=== PATIENT | female | born 1980 | race Caucasian/White ===

== ENCOUNTER 2018-12-17 11:56 | Emergency (ER) | payer MEDICAID, SELFPAY ==
[2018-12-17 12:13] VITALS: BP 126/69; PULSE 86; RESP 18; TEMP 36.6; O2SAT 97
--- NOTE | 2018-12-17 12:46 | DI.RAD_ITS ---
SYMPTOMS/DIAGNOSIS: FALL, TRAUMA RIGHT KNEE: No fracture or joint effusion is seen. The joint spaces are well maintained. IMPRESSION: Negative right knee.
--- NOTE | 2018-12-17 12:52 | ED.GENADUL_ITS ---
Discharge Plan Disposition Patient Disposition: HOME Condition: Fair Discharge Details Chief Complaint: Orthopedic Clinical Impression: Internal derangement of right knee Primary Care Provider: None,None ED Provider: Mara Scales Home Meds and New Rx's Prescriptions: Continued albuterol sulfate 1.25 mg/3 mL Solution For Nebulization 2.5 mg INHALATION QID PRNRF: 0 albuterol sulfate [ProAir HFA] 90 mcg/actuation Hfa Aerosol Inhaler 2 puff INHALATION Q6H PRNRF: 0 Discharge Instructions Instructions: Knee Pain (ED) Additional Instructions: Encourage rest, ice, elevation. Tylenol and/or ibuprofen as needed for discomfort. Please follow-up with primary care next week for reevaluation. In the interim, continue with the brace when ambulatory and use crutches to help with walking. Remain non weight bearing until evaluated by primary care next week. If you develop increased pain, fever/chills/worsening symptoms please seek care urgently once again Referrals: Elder Herr [OSTEOPATHIC DOCTOR] - Discharge Data Discharge Date/Time-TO BE ENTERED AT DEPARTURE: 12/17/18 13:33 Medical Decision Making Patient is a 38-year-old female presents today with chief complaint of right knee pain. Approximately for 30 minutes prior to arrival patient slipped down 6 stairs landing on the right knee. She has a moderate effusion noted on exam. She does not have any notable laxity on her ligamentous exam. She does have difficulty with forced flexion, unable to perform Rodrigo well secondary to this discomfort. She does have a negative Apley grind test. She is endorsing pain primarily over the lateral joint line. I did advise that I am slightly concerned for meniscus injury given the swelling and the area of discomfort. Also consider bony abnormality and will obtain x-ray X-rays reviewed by radiologist as well as myself without any acute bony abnormality noted. No fracture or joint effusion was seen. Discussed these findings with the patient. Encourage rest, ice, elevation. Tylenol and/or ibuprofen as needed for discomfort. Patient will be placed in a knee brace to help with ambulation. Given the level of discomfort she is having with weightbearing, plan to put the patient in a hinged knee brace. We discussed new/worsening symptoms that should prompt urgent evaluation once again. Advised that she follow-up with primary in the next 2 weeks. All of her questions and concerns were addressed and she is in agreement this plan HPI General Mode of arrival: ambulatory . Date/Time Provider Initiated Documentation: 12/17/18 12:50 . Limitations to Documentation: no limitations . Information obtained by: patient and RN notes reviewed . History of Present Illness 38 year old F presents to the emergency department with the chief complaint of right knee pain, described as severe, with intensity rated at 1 0. Quality is described as stabbing, and is localized to the right and lower extremity. Patient reports no radiation. Patient started experiencing this minute(s) and it has been constant. No relieving factors improve symptom(s), No exacerbating factors reported . Patient notes no other symptoms.. Patient did receive the following treatments prior to arrival, none Related Data Home Medications Medication Instructions Recorded Confirmed albuterol sulfate 2.5 mg INHALATION QID PRN 12/17/18 12/17/18 albuterol sulfate [ProAir HFA] 2 puff INHALATION Q6H PRN 12/17/18 12/17/18 Allergies Allergy/AdvReac Type Severity Reaction Status Date / Time bismuth subsalicylate Allergy Skin Rash Unverified 12/17/18 12:12 [From Pepto-Bismol] oxycodone Allergy Skin Rash Unverified 12/17/18 12:12 General Stated Complaint: Orthopedic JERMAINE: 4 Review of Systems Constitutional Reports as per HPI, Denies chills, Denies fever(s), Denies headache(s) and Denies weakness ENT Denies headache(s) Cardiovascular Reports as per HPI Respiratory Reports as per HPI and Denies cough Musculoskeletal Reports as per HPI and Denies tingling Integumentary/Breasts Reports as per HPI, Denies rash and Denies wounds Neurologic Reports as per HPI, Denies headache(s), Denies tingling, Denies paresthesias and Denies weakness [facility] Social History Smoking/Tobacco Use Status: Unknown Alcohol Intake: current Do you feel safe at home: Yes Do you feel safe in your relationship?: Yes Exam Const General: cooperative, healthy appearing, comfortable, no acute distress, well developed and well groomed Nutritional Appearance: average body habitus and well nourished Orientation: alert and awake Resp Effort & Inspection: normal respiratory effort, able to speak in complete sentences and no respiratory distress Cardio Rate: regular rate Rhythm: regular rhythm Skin General skin exam: no rashes or lesions noted Lesions: no lesions Rashes: no rashes Trauma: no lacerations or abrasions Neuro General: alert and awake Cognition: normal cognition Speech: speech normal Motor: muscle tone normal throughout Sensory Exam: no sensory deficits noted Extrem Right lower extremity: normal capillary refill, hip/thigh Details: normal to inspection and normal ROM; no tenderness and no swelling, knee Details: te nderness (diffuse, worse along lateral joint line), swelling (small effusion), abnormal ROM (limited flexion), knee ligament exam normal Details: anterior drawer test normal, posterior drawer test normal, valgus stress test normal and varus stress test normal; no pain with axial loading, Rodrigo's Test Details: positive medially and laterally and Apley's Test Details: negative; no abrasions, no lacerations and no ecchymosis, lower leg Details: normal to inspection; no localized swelling and no palpable cords, ankle Details: normal to inspection and foot Details: normal capillary refill, abnormal to inspection, toes with normal ROM, no edema and vascular exam Details: dorsalis pedis pulse present and posterior tibial pulse present; no tenderness; joint enlargement noted Psych Appearance: grossly normal and well kempt Mental Status: mental status grossly normal Speech and Movement: speech and movement normal Course Vital Signs Temperature 36.6 C 12/17/18 12:13 Pulse 86 12/17/18 12:13 Respiratory Rate 18 12/17/18 12:13 Blood Pressure 126/69 12/17/18 12:13 Pulse Oximetry 97 12/17/18 12:13 Temperature 36.6 C 12/17/18 12:13 Temperature Source Temporal Artery Scan 12/17/18 12:13 Pulse 86 12/17/18 12:13 Respiratory Rate 18 12/17/18 12:13 Respiratory Effort 12/17/18 12:44 Blood Pressure 126/69 12/17/18 12:13 Blood Pressure Position Sitting 12/17/18 12:13 Pulse Oximetry 97 12/17/18 12:13 Oxygen Delivery Method Room Air 12/17/18 12:13 Oxygen Flow Rate 0 12/17/18 12:13 Pain Level 10 12/17/18 12:13
== END 2018-12-17 13:33 | disposition home or self-care (01) ==
PROVIDERS: Emergency Provider Physician Assistant
DX: M23.91 Unspecified internal derangement of right knee (principal); M25.461 Effusion, right knee; W10.8XXA Fall (on) (from) other stairs and steps, initial encounter
CPT/HCPCS: 29505; 99284; 73564; E0114; L1810

== ENCOUNTER 2022-08-07 08:19 | Emergency (ER) | payer MEDICAID, SELFPAY ==
[2022-08-07 08:24] VITALS: BP 134/98; PULSE 84; RESP 18; O2SAT 98
--- NOTE | 2022-08-07 08:30 | DI.CT_ITS ---
Exam(s) CT ABDOMEN PELVIS W EXAM: CT ABDOMEN PELVIS W CLINICAL HISTORY: Left sided abd pain, Nausea, Vomiting TECHNIQUE: Imaging Protocol: Axial computed tomography images with coronal and sagittal reformatted images were created and reviewed CONTRAST MATERIAL: Intravenous: Omnipaque 350 Contrast volume:100 mL Oral: No COMPARISON: No exams were available for comparison FINDINGS: ABDOMEN: Lung Bases: Normal where visualized. Liver: Normal density. No measurable mass. Portal, Superior Mesenteric, and Splenic Veins: Unremarkable. Gallbladder and Biliary Tract: Cholelithiasis. No biliary ductal dilatation. Pancreas: Normal density, no abnormal calcifications or inflammatory process. Spleen: Normal. Adrenals: There is a 0.8 cm round hypodense nodule in the left adrenal gland. No follow-up is recomm ended. The right adrenal gland is unremarkable. Kidneys: Normal size, contour and axis. No radiodense stones or obstructive uropathy. No masses seen. Abdominal Aorta: Abdominal portion non-dilated. Bowel: There are few diverticula in the colon but no evidence of acute diverticulitis. There is no e vidence of bowel obstruction or bowel wall thickening. Appendix is unremarkable. Peritoneal Cavity: No ascites, collection or mesenteric inflammatory response. No free air. Lymph Nodes: Within normal limits. Bones: Within normal limits for the patient's age. Soft Tissues: Unremarkable. PELVIS: Bladder: Symmetric distention, no gross wall thickening. Reproductive Organs: Unremarkable as visualized. Lymph Nodes: Within normal limits. Bones: Within normal limits for the patient's age. IMPRESSION: 1. Cholelithiasis. No biliary ductal dilatation or other evidence to suggest acute cholecystitis. 2. Colonic diverticulosis but no evidence of acute diverticulitis. 3. No evidence of nephrolithiasis or hydronephrosis. 4. Findings were discussed with Alysa Hawk at 9:18 a.m. on 08/07/2022. RADIATION DOSE DELIVERED: 971.59mGy.cm Total DLP DATA REPOSITORY: All CT scans at this facility are submitted to the National Radiology Data Registry (NRDR) Dose Index Registry (DIR) with the [employer] (A[employer]). RADIATION OPTIMIZATION: All CT scans at this facility use at least one of these dose optimization te chniques: automated exposure control; mA and/or kV adjustment per patient size (includes targeted exa ms where dose is matched to clinical indication); or iterative reconstruction.
[2022-08-07 08:31] VITALS: TEMP 36.2
--- NOTE | 2022-08-07 08:32 | ED.GENADUL_ITS ---
Discharge Plan Disposition Patient Disposition: Home Discharge Details Clinical Impression: Nausea & vomiting Primary Care Provider: Elder Herr ED Provider: Alysa Hawk Home Meds and New Rx's Prescriptions: Continued albuterol sulfate 1.25 mg/3 mL Solution For Nebulization 2.5 mg INHALATION QID PRN albuterol sulfate [ProAir HFA] 90 mcg/actuation Hfa Aerosol Inhaler 2 puff INHALATION Q6H PRN trazodone 50 mg tablet 50 mg PO DAILY Patient Comments: TAKE ONE TABLET BY MOUTH EVERY DAY FOR 30 DAYS sertraline 100 mg tablet 100 mg DAILY Patient Comments: TAKE 1 TABLET BY MOUTH DAILY Discharge Instructions Instructions: Acute Nausea and Vomiting (ED) Additional Instructions: Take the nausea medication up to 3 times daily before eating or drinking anything as needed. The repeat urinalysis shows no evidence for urinary tract infection. Please advance diet as tolerated. Stay away from anything fried fatty spicy or dairy. Follow up with primary care provider in 3-5 days. Return to ED sooner if any worsening pain, fever, vomiting or concerns. Increase oral fluids. Referrals: Elder Herr [Primary Care Provider] - 5 days Medical Decision Making <Alysa Hawk NP - Last Filed: 08/07/22 10:24> 42-year-old female presents to the ER with a chief complaint of nausea vomiting which began last night around 9 PM and some left-sided abdominal pain. She also endorses some constipation for the last 2 days and dysuria. She reports fever and chills. She is concerned for possible kidney infection. She does have a past medical history of chronic bronchitis, she is a daily smoker. CBC, CMP, lipase urinalysis liter of saline and Zofran ordered. Urinalysis shows moderate leukocytes trace protein no red blood cells. Micro is pending at this time. CT abdomen pelvis with IV contrast ordered. Differential diagnosis includes but not limited to UTI, kidney stone, kidney i nfection, small bowel obstruction, diverticulitis Urinalysis shows squamous contamination culture not indicated at this time. Repeat UA ordered. Labs are largely unremarkable, see below. CT abdomen pelvis shows nothing acute some small diverticula no evidence of diverticulitis, cholelithiasis no evidence of cholecystitis. Patient reevaluation, she reports that her pain is better. Discussed work-up results she verbalizes under standing. She is up to the bathroom to give an additional urine sample I did discuss clean catch procedures with her. She verbalized understanding. Repeat urinalysis shows no leukocytes no nitrites no blood no evidence of UTI. We will send patient home with Zofran tablets and instructed on rehydration and strict return instructions. This text was generated using [employer] system, please disregard any oddities of phrase or misspellings. Medical Records Medical records reviewed: Yes I reviewed the patient's medical records. Medical records narrative: On patient record review patient was seen and treated at [facility] in May and was given Bactrim at that time for UTI. Imaging Data Radiologic Study: Imaging: CT Scan Radiologist's impression: EXAM: CT ABDOMEN PELVIS W CLINICAL HISTORY: Left sided abd pain, Nausea, Vomiting TECHNIQUE: Imaging Protocol: Axial computed tomography images with coronal and sagittal reformatted images were created and reviewed CONTRAST MATERIAL: Intravenous: Omnipaque 350 Contrast volume:100 mL Oral: No COMPARISON: No exams were available for comparison FINDINGS: ABDOMEN: Lung Bases: Normal where visualized. Liver: Normal density. No measurable mass. Portal, Superior Mesenteric, and Splenic Veins: Unremarkable. Gallbladder and Biliary Tract: Cholelithiasis. No biliary ductal dilatation. Pancreas: Normal density, no abnormal calcifications or inflammatory process. Spleen: Normal. Adrenals: There is a 0.8 cm round hypodense nodule in the left adrenal gland. No follow-up is recommended. The right adrenal gland is unremarkable. Kidneys: Normal size, contour and axis. No radiodense stones or obstructive uropathy. No masses seen. Abdominal Aorta: Abdominal portion non-dilated. Bowel: There are few diverticula in the colon but no evidence of acute diverticulitis. There is no evidence of bowel obstruction or bowel wall thickening. Appendix is unremarkable. Peritoneal Cavity: No ascites, collection or mesenteric inflammatory response. No free air. Lymph Nodes: Within normal limits. Bones: Within normal limits for the patient's age. Soft Tissues: Unremarkable. PELVIS: Bladder: Symmetric distention, no gross wall thickening. Reproductive Organs: Unremarkable as visualized. Lymph Nodes: Within normal limits. Bones: Within normal limits for the patient's age. IMPRESSION: 1. Cholelithiasis. No biliary ductal dilatation or other evidence to suggest acute cholecystitis. 2. Colonic diverticulosis but no evidence of acute diverticulitis. 3. No evidence of nephrolithiasis or hydronephrosis. 4. Findings were discussed with Alysa Hawk at 9:18 a.m. on 08/07/2022. Lab Data Lab results reviewed: Yes I reviewed the patient's lab results. Labs: Laboratory Tests Range/Units 08/07/22 08/07/22 08/07/22 08:25 08:42 08:42 WBC (4.4-10.8) 10^3/uL 6.65 RBC (3.93-5.22) 10^6/uL 5.01 Hgb (11.2-15.7) g/dL 13.2 Hct (36.0-46.0) % 40.7 MCV (80-95) fL 81 MCH (27.0-33.0) pg 26.3 L MCHC (32.0-36.0) % 32.4 RDW (11.7-14.6) % 14.8 H Plt Count (130-400) 10^3/uL 364 MPV (8.0-11.0) fL 10.0 Immature Gran % 0.2 Neutrophils % 60.4 Lymphocytes % 29.3 Monocytes % 6.9 Eosinophils % 2.6 Basophils % 0.6 Nucleated RBC % (0.0-0.3) % 0.0 Absolute Neutrophils (1.2-6.7) 10^3/uL 4.02 Absolute Lymphocytes (1.2-3.4) 10^3/uL 1.95 Absolute Monocytes (0.1-0.8) 10^3/uL 0.46 Absolute Eosinophils (0.0-0.7) 10^3/uL 0.17 Absolute Basophils (0.0-0.2) 10^3/uL 0.04 Sodium (136-145) mmol/L 140 Potassium (3.5-5.1) mmol/L 4.1 Chloride (98-107) mmol/L 106 Carbon Dioxide (21.0-32.0) mmol/L 27.9 Anion Gap (3-11) mmol/L 6.1 BUN (7-18) mg/dL 12 Creatinine (0.55-1.02) mg/dL 0.8 Est GFR (CKD-EPI 2020) (mL/min/1.73m2) 93.12 Glucose (74-106) mg/dL 96 Calcium (8.5-10.1) mg/dL 8.6 Total Bilirubin (0.2-1.0) mg/dL 0.5 AST (15-37) U/L 18 ALT (14-59) U/L 32 Alkaline Phosphatase (46-116) U/L 87 Total Protein (6.4-8.2) g/dL 7.5 Albumin (3.4-5.0) g/dL 3.6 Lipase (16-77) U/L 28 Urine Color (Yellow) Yellow Urine Clarity (Clear) Sl Cloudy Urine pH (5-8) 7.0 Ur Specific [place] (1.005-1.025) 1.025 Urine Protein (Negative) mg/dL Trace H Urine Ketones (Negative) mg/dL Negative Urine Blood (Negative) Negative Urine Nitrite (Negative) Negative Urine Bilirubin (Negative) Negative Urine Urobilinogen (Up to 0.2) mg/dL 1.0 H Ur Leukocyte Esterase (Negative) Moderate H Urine RBC (0-2) HPF Negative Urine WBC (0-5) HPF 5-10 Ur Epithelial Cells (Negative) HPF Many Urine Crystals (Negative) HPF Negative Urine Bacteria (Negative) HPF Few Urine Casts (Negative) LPF 0-2 Hyaline Urine Mucus (Negative) Negative Ur Culture Indicated? No/Sq. Contamination Urine Glucose (Negative) mg/dL Negative <Pa Galeana MD - Last Filed: 08/07/22 09:52> Date: 08/07/22 Time: 09:52 Note: Patient seen and discussed with LINDSEY Hawk. I agree with treatment plan as discussed/documented. HPI <Alysa Hawk NP - Last Filed: 08/07/22 10:24> General Mode of arrival: ambulatory . Date/Time Provider Initiated Documentation: 08/07/22 08:20 . Limitations to Documentation: no limitations . Information obtained by: patient, RN notes reviewed and old records reviewed . HPI Narrative: 42-year-old female presents to the ER with a chief complaint of nausea vomiting which began last night around 9 PM and some left-sided abdominal pain. She also endorses some constipation for the last 2 days and dysuria. She reports fever and chills. She is concerned for possible kidney infection. She does have a past medical history of chronic bronchitis, she is a daily smoker. She has not taken any medications prior to arrival. Related Data Home Medications Medication Instructions Recorded Confirmed albuterol sulfate 1.25 mg/3 mL 2.5 mg inhalation QID PRN 12/17/18 08/07/22 solution for nebulization albuterol sulfate 90 mcg/actuation 2 puff inhalation Q6H PRN 12/17/18 08/07/22 aerosol inhaler (ProAir HFA) sertraline 100 mg tablet 100 mg DAILY 08/07/22 08/07/22 trazodone 50 mg tablet 50 mg PO DAILY 08/07/22 08/07/22 Allergies Allergy/AdvReac Type Severity Reaction Status Date / Time bismuth subsalicylate Allergy Skin Rash Unverified 08/07/22 08:32 [From Pepto-Bismol] oxycodone Allergy Skin Rash Unverified 08/07/22 08:32 General Stated Complaint: Abd Prob JERMAINE: 3 Review of Systems <Alysa Hawk NP - Last Filed: 08/07/22 10:24> All systems reviewed & are unremarkable except as noted in HPI and below Constitutional Constitutional: Reports chills Gastrointestinal Gastrointestinal: Reports abdominal pain, Reports constipation, Denies heartburn, Denies diarrhea, Reports nausea, Reports vomiting and Denies hematemesis Genitourinary Genitourinary: Reports dysuria PFSH <Alysa Hawk NP - Last Filed: 08/07/22 10:24> All Active Problems (Updated 08/07/22 @ 09:44 by Alysa Hawk NP) Nausea & vomiting (Acute) Social History Smoking/Tobacco Use Status: Current every day Tobacco Type: cigarettes Smoking risk assessment performed?: Yes Alcohol Intake: current Alcohol Intake frequency: holidays/special occasions only Substance use type: does not use Do you feel safe at home: Yes Do you feel safe in your relationship?: Yes Female Reproductive History Menstrual Date of last menstrual period: 08/02/22 control method: none Exam <Alysa Hawk NP - Last Filed: 08/07/22 10:24> Narrative Exam Narrative: Constitutional: Alert and oriented x3. Appears stated age. Normal body habitus. Head: Normocephalic, no trauma. Eyes: Pupils PERRL, EOM's intact. Eyelids symmetrical without lesions, discharge, or swelling. Chest: RRR, Normal S1, S2, distal pulses intact. Resp: Lungs clear to auscultation bilaterally, no wheezes, rales, or rhonchi. Abdomen: Soft, non-distended, Normoactive bowel sounds all 4 quads. Tenderness with palpation of the left upper quadrant left lower quadrant, no masses or guarding palpated. Musculoskeletal: Normal gait, 5/5 strength to all four extremities. Skin: No suspicious rashes or lesions. Capillary refill less than 2 sec. Neurologic: Cranial nerves II-XII intact. Alert and oriented x 3. Motor: No deficits noted. Hematologic/Lymphatic: No ecchymosis, no lymphadenopathy. Course <Alysa Hawk NP - Last Filed: 08/07/22 10:24> Vital Signs Vital signs: Vital Signs Pulse 84 08/07/22 08:24 Respiratory Rate 18 08/07/22 08:24 Blood Pressure 134/98 H 08/07/22 08:24 Pulse Oximetry 98 08/07/22 08:24 Temperature 36.2 C L 08/07/22 08:31 Temperature Source Oral 08/07/22 08:31 Pulse 84 08/07/22 08:24 Respiratory Rate 18 08/07/22 08:24 Respiratory Effort Normal, Non-Labored 08/07/22 08:29 Blood Pressure 134/98 H 08/07/22 08:24 Pulse Oximetry 98 08/07/22 08:24 Oxygen Delivery Method Room Air 08/07/22 08:24 Oxygen Flow Rate 0 08/07/22 08:24
[2022-08-07 08:36] LABS: Bilirubin Negative (Negative); Blood Negative (Negative); Clarity Sl Cloudy (Clear); Glucose Negative (Negative); Ketones Negative (Negative); Leukocyte Esterase Moderate (Negative); Nitrite Negative (Negative); Specific Gravity 1.025 (1.005-1.025)
[2022-08-07] MEDS: Ondansetron 4 MG/2 ML VIAL IVP (08:42)
[2022-08-07] MEDS: Normal Saline 1,000 ML 1000 ML IV (08:42)
[2022-08-07 08:46] LABS: Bacteria Few HPF (Negative); C & S Indicated? No/Sq. Contamination; Casts 0-2 Hyaline LPF (Negative); Crystals Negative HPF (Negative); Epithelial Cells Many HPF (Negative); Mucus Negative (Negative); RBC Negative HPF (0-2)
[2022-08-07 08:52] LABS: Abs Immature Grans 0.01 10^3/uL (0.0-0.06); Absolute Basophil Count 0.04 10^3/uL (0.0-0.2); Absolute Eosinophil Count 0.17 10^3/uL (0.0-0.7); Absolute Lymphocyte Count 1.95 10^3/uL (1.2-3.4); Absolute Monocyte Count 0.46 10^3/uL (0.1-0.8); Absolute Neutrophil Count 4.02 10^3/uL (1.2-6.7); Basophils % 0.6; Eosinophils % 2.6; HCT 40.7 % (36.0-46.0); HGB 13.2 g/dL (11.2-15.7); Immature Grans % 0.2; Lymphocytes % 29.3; MCH 26.3 pg (27.0-33.0); MCHC 32.4 % (32.0-36.0); MCV 81 fL (80-95); Monocytes % 6.9; Neutrophils % 60.4; Platelet Count 364 10^3/uL (130-400); RBC 5.01 10^6/uL (3.93-5.22); RDW 14.8 % (11.7-14.6); RDW-SD 43.5 fL; WBC 6.65 10^3/uL (4.4-10.8)
[2022-08-07] MEDS: Normal Saline - Diluent 50 ML VIAL IJ (09:03)
[2022-08-07] MEDS: Omnipaque 350 MG/ML 500 ML BTL-Imaging package 100 ML IJ (09:04)
[2022-08-07 09:07] LABS: ALT 32 U/L (14-59); AST 18 U/L (15-37); Albumin 3.6 g/dL (3.4-5.0); Alkaline Phosphatase 87 U/L (46-116); Anion Gap 6.1 mmol/L (3-11); BUN 12 mg/dL (7-18); Bilirubin, Total 0.5 mg/dL (0.2-1.0); CO2 27.9 mmol/L (21.0-32.0); CREATININE 0.8 mg/dL (0.55-1.02); Calcium 8.6 mg/dL (8.5-10.1); Chloride 106 mmol/L (98-107); Estimated GFR 93.12 (mL/min/1.73m2); Glucose 96 mg/dL (74-106); Lipase 28 U/L (16-77); Potassium 4.1 mmol/L (3.5-5.1); Sodium 140 mmol/L (136-145); Total Protein 7.5 g/dL (6.4-8.2)
[2022-08-07 09:38] LABS: Bilirubin Negative (Negative); Blood Negative (Negative); Clarity Clear (Clear); Glucose Negative (Negative); Ketones Negative (Negative); Leukocyte Esterase Negative (Negative); Nitrite Negative (Negative); Specific Gravity 1.015 (1.005-1.025); Urobilinogen 0.2 mg/dL (Up to 0.2); pH 8.5 (5-8)
[2022-08-07] MEDS: Ondansetron O.D.T. 4 MG TABEF, 3 TABS/BTL PO (09:52)
[2022-08-07 09:53] VITALS: BP 129/83; PULSE 69; RESP 16; TEMP 36.9; O2SAT 100
== END 2022-08-07 09:52 | disposition home or self-care (01) ==
PROVIDERS: Emergency Provider Registered Nurse Emergency; PCP Neuromusculoskeletal Medicine & OMM
DX: R11.2 Nausea with vomiting, unspecified (principal); K59.00 Constipation, unspecified; R30.0 Dysuria; R50.9 Fever, unspecified; D72.829 Elevated white blood cell count, unspecified
CPT/HCPCS: 36415; 80053; 81025; 83690; 96361; 96374; 99285; 74177; 81003; 81015; 85025; 99284; J2405

== ENCOUNTER 2022-11-09 16:32 | Emergency (ER) | payer MEDICAID, SELFPAY ==
[2022-11-09 16:37] VITALS: BP 121/72; PULSE 96; RESP 18; TEMP 36.7; O2SAT 95
--- NOTE | 2022-11-09 16:51 | ED.GENADUL_ITS ---
Discharge Plan Disposition Patient Disposition: Home Discharge Details Clinical Impression: Sore throat Primary Care Provider: Elder Herr ED Provider: Aries Gordon Home Meds and New Rx's Prescriptions: New amoxicillin 500 mg tablet 500 mg PO BID Qty: 20 0RF Continued albuterol sulfate 1.25 mg/3 mL Solution For Nebulization 2.5 mg INHALATION QID PRN albuterol sulfate [ProAir HFA] 90 mcg/actuation Hfa Aerosol Inhaler 2 puff INHALATION Q6H PRN trazodone 50 mg tablet 50 mg PO DAILY Patient Comments: TAKE ONE TABLET BY MOUTH EVERY DAY FOR 30 DAYS sertraline 100 mg tablet 100 mg DAILY Patient Comments: TAKE 1 TABLET BY MOUTH DAILY Discharge Instructions Instructions: Pharyngitis (ED) Additional Instructions: IF not improving within 1 week follow up with your primary care provider if you feel more ill, have inability to swallow liquids or difficulty breathing return to the emergency department Medical Decision Making 42 yo female comes in with 2-3 days of sore throat with subjective fever last night. Denies difficulty swallowing, no drooling, no dyspnea. She arrives stable speaking clearly and swallowing normally. She appears well, no submandibular swelling, no pain over the hyoid or restricted neck movements. Midline uvula, posterior pharynx is erythematous with exudates, her significant other did recently have strep. Rapid strep negative but given close contact with strep recently and her exam findings will initiate treatment with amoxicillingand a dose of dexamethasone. No findings on exam or history to suggest epiglotitis, retropharyngeal abscess, peritonsilar abscess. She is stable for d/c, advised to f/u with pcp and return precautions given. Differential Diagnosis Differential Diagnosis: strep, viral pharyngitis HPI General Mode of arrival: ambulatory . Date/Time Provider Initiated Documentation: 11/09/22 16:36 . Limitations to Documentation: no limitations . Information obtained by: patient . History of Present Illness 42 year old F presents to the emergency department with the chief complaint of sore throat, described as moderate, Quality is described as aching, and it has been constant. No relieving factors improve symptom(s), No exacerbating factors reported . Patient notes denies cough and shortness of breath. Patient did receive the following treatments prior to arrival, none Related Data Home Medications Medication Instructions Recorded Confirmed albuterol sulfate 1.25 mg/3 mL 2.5 mg inhalation QID PRN 12/17/18 11/09/22 solution for nebulization albuterol sulfate 90 mcg/actuation 2 puff inhalation Q6H PRN 12/17/18 11/09/22 aerosol inhaler (ProAir HFA) sertraline 100 mg tablet 100 mg DAILY 08/07/22 11/09/22 trazodone 50 mg tablet 50 mg PO DAILY 08/07/22 11/09/22 amoxicillin 500 mg tablet 500 mg PO BID #20 tabs 11/09/22 Previous Rx's Medication Instructions Recorded amoxicillin 500 mg tablet 500 mg PO BID #20 tabs 11/09/22 Allergies Allergy/AdvReac Type Severity Reaction Status Date / Time bismuth subsalicylate Allergy Skin Rash Unverified 11/09/22 16:49 [From Pepto-Bismol] oxycodone Allergy Skin Rash Unverified 11/09/22 16:49 General Stated Complaint: Sorethroat JERMAINE: 4 Review of Systems All systems reviewed & are unremarkable except as noted in HPI and below Constitutional Constitutional: Denies chills and Denies weakness Cardiovascular Cardiovascular: Denies chest pain and Denies dyspnea Respiratory Respiratory: Denies cough and Denies dyspnea Gastrointestinal Gastrointestinal: Denies abdominal pain, Denies nausea and Denies vomiting Musculoskeletal Musculoskeletal: Denies joint swelling Neurologic Neurologic: Denies weakness PFSH All Active Problems (Updated 11/09/22 @ 16:55 by Aries Gordon MD) Sore throat (Acute) Social History Smoking/Tobacco Use Status: Current every day Tobacco Type: cigarettes Smoking risk assessment performed?: Yes Alcohol Intake: current Alcohol Intake frequency: holidays/special occasions only Substance use type: does not use Do you feel safe at home: Yes Do you feel safe in your relationship?: Yes Female Reproductive History Menstrual control method: none Exam Const General: no acute distress Orientation: alert HENOR Head: normal to inspection, normocephalic and atraumatic Ears: external ears normal General nose exam: external nose normal Mouth: moist mucous membranes Eyes General: appearance normal, both eyes and all related structures Neck Neck: normal visual inspection Resp Effort & Inspection: normal respiratory effort and able to speak in complete sentences Cardio Rate: regular rate Skin General skin exam: no rashes or lesions noted Neuro General: patient alert and patient oriented x3 Extrem General: normal to inspection Psych Mental Status: mental status grossly normal Course Vital Signs Vital signs: Vital Signs Temperature 36.7 C 11/09/22 16:37 Pulse 96 H 11/09/22 16:37 Respiratory Rate 18 11/09/22 16:37 Blood Pressure 121/72 11/09/22 16:37 Pulse Oximetry 95 11/09/22 16:37 Temperature 36.7 C 11/09/22 16:37 Temperature Source Oral 11/09/22 16:37 Pulse 96 H 11/09/22 16:37 Respiratory Rate 18 11/09/22 16:37 Respiratory Effort Normal, Non-Labored 11/09/22 16:40 Blood Pressure 121/72 11/09/22 16:37 Blood Pressure Position Standing 11/09/22 16:37 Pulse Oximetry 95 11/09/22 16:37 Oxygen Delivery Method Room Air 11/09/22 16:37 Oxygen Flow Rate 0 11/09/22 16:37 Lab/Test Results Lab/Test Results: 11/09/22 16:40 Pharynx Group A Streptococcus Culture - Pending POC Strep Test-NORY(Rapid) Start: 11/09/22 16:46 Freq: .Rapid Strep Test Status: Active Protocol: Document 11/09/22 16:47 CB (Rec: 11/09/22 16:47 [id number] [id number]) Strep test-NORY(Rapid)-POC POC-Strep test-NORY (Rapid) Negative POC-Strep test-NORY (Rapid) Negative
[2022-11-09] MEDS: Amoxicillin 500 MG CAP PO (17:00)
[2022-11-09] MEDS: Dexamethasone 4 MG TAB 10 MG PO (17:00)
--- NOTE | 2022-11-11 10:52 | NUR.NOTE ---
Nursing Note: Accessed pt chart to determine if pt is on antibiotics or not for culture.
--- NOTE | 2022-11-11 10:59 | W.EDPROG ---
Date of service: 11/11/22 Time of Service: 10:59 Medical Decision Making Patient had a strep swab performed during her recent ED visit. It was positive for group A strep. She was discharged on amoxicillin 500 mg twice daily. No further action required at this point time. Discharge Plan Disposition Patient Disposition: Home Discharge Details Clinical Impression: Sore throat Primary Care Provider: Elder Herr ED Provider: Aries Gordon Home Meds and New Rx's Prescriptions: New amoxicillin 500 mg tablet 500 mg PO BID Qty: 20 0RF Continued albuterol sulfate 1.25 mg/3 mL Solution For Nebulization 2.5 mg INHALATION QID PRN albuterol sulfate [ProAir HFA] 90 mcg/actuation Hfa Aerosol Inhaler 2 puff INHALATION Q6H PRN trazodone 50 mg tablet 50 mg PO DAILY Patient Comments: TAKE ONE TABLET BY MOUTH EVERY DAY FOR 30 DAYS sertraline 100 mg tablet 100 mg DAILY Patient Comments: TAKE 1 TABLET BY MOUTH DAILY Discharge Instructions Instructions: Pharyngitis (ED) Additional Instructions: IF not improving within 1 week follow up with your primary care provider if you feel more ill, have inability to swallow liquids or difficulty breathing return to the emergency department Discharge Data Discharge Date/Time-TO BE ENTERED AT DEPARTURE: 11/09/22 17:01
== END 2022-11-09 17:01 | disposition home or self-care (01) ==
PROVIDERS: Emergency Provider Emergency Medicine; PCP Neuromusculoskeletal Medicine & OMM
DX: J02.9 Acute pharyngitis, unspecified (principal)
CPT/HCPCS: 87880; 99283; 87081; 99284; J8540